=== PATIENT | female | born 2000 | race Caucasian/White ===

== ENCOUNTER 2021-05-13 22:28 | Emergency (ER) | payer BC ==
[2021-05-14] MEDS ORDERED: ACETAMINOPHEN TAB 500 MG TAB PO STA (00:24)
[2021-05-14] MEDS ORDERED: LIDOCAINE 2%-EPI 1:100,000 20 ML VIAL SQ STA (00:24)
[2021-05-14] MEDS ORDERED: AMOXIC-POT CLAV 875-125MG 1 EACH TAB PO STA (00:24)
[2021-05-14] MEDS ORDERED: DIPH,PERTUS(ACELL)TETVAC-LF 0.5 ML VIAL IM ONE (00:25)
--- NOTE | 2021-05-14 00:26 | ED ---
Animal Bite HPI - General Chief Complaint: Animal Bite Stated Complaint: Dog Bite, Head Injury Time Seen by Provider: 05/14/21 00:19 Source: patient, RN notes reviewed Mode of arrival: wheelchair Limitations: no limitations - History of Present Illness Initial Comments: This is a pleasant 20-year-old female presents to the emergency department, several lacerations to her scalp after being bitten by her friend's dog. Dog is up-to-date on immunizations and can be observed. Patient denying any significant pain. Patient drove straight here. The wounds were not cleansed. Patient herself is up-to-date on most immunizations but states she does not recall last time she had tetanus. She is 20 years old. Likely had tetanus at 10 or 11 years old. Patient has no other significant past medical history. No headache, no fever or chills, no changes in vision or hearing, no sore throat or difficulty with speech, no neck pain, no chest pain or shortness of breath, no abdominal pain, no nausea or vomiting, no changes in urination or bowel movements, no numbness or tingling, no extremity pain, no skin rashes or lesions. MD Complaint: animal bite Onset/Timin -: hour(s) Location: head - Related Data Previous Rx's Medication Instructions Recorded Acetaminophen [Tylenol] 500 mg PO Q4-6H PRN #24 tab 05/14/21 Amoxicillin/Potassium Clav 1 each PO Q12HR #20 tab 05/14/21 [Augmentin 875-125 Tablet] Ibuprofen [Motrin] 600 mg PO Q8HR PRN #30 tab 05/14/21 Allergies Allergy/AdvReac Type Severity Reaction Status Date / Time No Known Allergies Allergy Verified 05/13/21 23:56 Review of Systems ROS Statement: Those systems with pertinent positive or pertinent negative responses have been documented in the HPI. ROS Other: All systems not noted in ROS Statement are negative. Past Medical History Past Medical History: No Reported History History of Any Multi-Drug Resistant Organisms: None Reported Past Surgical History: No Surgical Hx Reported Past Psychological History: No Psychological Hx Reported Smoking Status: Never smoker Past Alcohol Use History: Occasional Past Drug Use History: None Reported General Exam Limitations: no limitations General appearance: alert, in no apparent distress Head exam: Present: normocephalic, normal inspection, other (Scalp lacerations, matted blood noted) Eye exam: Present: normal appearance, PERRL, EOMI. Absent: scleral icterus, conjunctival injection, periorbital swelling ENT exam: Present: normal exam, normal oropharynx, mucous membranes moist, normal external ear exam. Absent: mucous membranes dry Neck exam: Present: normal inspection, full ROM. Absent: tenderness, meningismus, lymphadenopathy Respiratory exam: Present: normal lung sounds bilaterally. Absent: respiratory distress, wheezes, rales, rhonchi, stridor, accessory muscle use Cardiovascular Exam: Present: regular rate, normal rhythm, normal heart sounds. Absent: systolic murmur, diastolic murmur, rubs, gallop, clicks GI/Abdominal exam: Present: soft. Absent: tenderness, guarding Extremities exam: Present: normal inspection, full ROM, normal capillary refill. Absent: tenderness, pedal edema, joint swelling, calf tenderness Back exam: Present: normal inspection Neurological exam: Present: alert, oriented X3, CN II-XII intact, normal gait. Absent: altered, abnormal gait, motor sensory deficit Psychiatric exam: Present: normal affect, normal mood Skin exam: Present: warm, dry, normal color. Absent: intact, rash Course Vital Signs 05/13/21 23:56 Temperature 98.3 F Pulse Rate 82 Respiratory 18 Rate Blood Pressure 123/72 O2 Sat by Pulse 100 Oximetry Procedures - Laceration Laceration #1 Site: scalp Size (cm): 11 Description: stellate, irregular, clean Depth: simple, single layer Anesthetic Used: lidocaine 1% Pre-repair: wound explored, irrigated extensively, deep structures intact, foreign body removed Type of Sutures: other (Jose) Size of Sutures: other (Rembrandt) Number of Sutures: 14 Patient Tolerated Procedure: well, no complications Laceration #2 Consent Obtained: verbal consent Indication: laceration Site: scalp Description: irregular, clean Depth: simple, single layer Anesthetic Used: benzocaine 0.25%, lidocaine 1%, with epi Anesthesia Technique: local infiltration Pre-repair: wound explored, irrigated extensively, deep structures intact, extensive debridement (Debridement 1.5 x 1.5 cm.) Type of Sutures: other (Staple) Size of Sutures: other (Jose) Number of Sutures: 11 Technique: simple, interrupted Patient Tolerated Procedure: well, no complications Medical Decision Making - Medical Decision Making Patient had several lacerations and abrasions to the posterior aspect of her scalp. She otherwise was neurologically intact. Did not appear to be ill or toxic. Wounds were cleansed thoroughly with 1 L of normal saline. Edges were approximated with jose. Computed tomography scan was done due to the trauma. There was no evidence of abnormality other than soft tissue changes. Reevaluated prior to discharge and is neurologically intact. Cranial nerves II through XII are intact. Discussed wound care in detail with the patient and her family. Augmentin 875 mg was given here. We'll continue twice daily. Ibuprofen and acetaminophen for pain control. Patient will need to follow-up with her regular doctor within 2 days for wound check. If she has any issues she is to return here. She is to return here immediately if any signs or symptoms of infection develop. All questions answered. Patient agrees with the treatment plan. The dog can be observed that the patient's friend's house. The case was discussed in detail with ED attending physician. Presentation, findings, treatment plan discussed in detail. Staple removal in 10-12 days Patient was told to return to the ER for any signs or symptoms worsen. Told to return immediately if any other problems arise. All questions answered. Treatment plan discussed. Patient in agreement Every effort has been made to ensure accuracy of this dictation. However, due to the limitations of electronic medical records and dictation devices, errors in charting still occur. Disposition Clinical Impression: Dog bite, Scalp laceration Disposition: HOME SELF-CARE Instructions (If sedation given, give patient instructions): Animal Bite (ED) Additional Instructions: Staple removal in 10-12 days. Take the antibiotics as directed. Follow-up with your regular doctor within 48 hours for wound check. Follow-up with your regular physician as directed. Return to the ER immediately if any symptoms worsen, new symptoms arise, or any other problems develop. Prescriptions: Amoxicillin/Potassium Clav [Augmentin 875-125 Tablet] 1 each PO Q12HR #20 tab Ibuprofen [Motrin] 600 mg PO Q8HR PRN #30 tab PRN Reason: Pain Acetaminophen [Tylenol] 500 mg PO Q4-6H PRN #24 tab PRN Reason: Pain Is patient prescribed a controlled substance at d/c from ED?: No Referrals: Maxi Ramos MD [REFERRING] - 1-2 days Time of Disposition: 02:30
[2021-05-14] MEDS ORDERED: BUPIVACAINE (PF) 0.5% 30 ML VIAL SQ STA (01:13)
--- NOTE | 2021-05-14 01:36 | CT ---
EXAMINATION TYPE: CT brain wo con DATE OF EXAM: 05/14/2021 COMPARISON: None HISTORY: DOG BITE TO BACK OF HEAD CT DLP: 1099.4 mGycm Automated exposure control for dose reduction was used. Images of the brain obtained without contrast. The ventricles and sulci appear normal. There is no mass effect or midline shift. There is no sign of intracranial hemorrhage. There is scalp laceration defect noted in the left occipital region. This i s consistent with a dog bite. There is no evidence of skull fracture. The skull base is intact. There is normal aeration of the mas toid sinuses. IMPRESSION: No intracranial abnormality. Laceration defect in the left occipital scalp.
[2021-05-14] MEDS ORDERED: BACITRACIN ZINC 500 UNIT/GM OINT 28.4 GM TUBE TOPICAL STA (02:19)
[2021-05-14] MEDS ORDERED: BACITRACIN OINT 1 EACH PACKET TOPICAL ONE (02:20)
[2021-05-14 02:41] VITALS: BP 119/79; PULSE 84; RESP 20; TEMP 98.2
== END 2021-05-14 02:41 | disposition home or self-care (01) ==
LOC: EC 22:28
DX: S01.01XA Laceration without foreign body of scalp, initial encounter (principal); W54.0XXA Bitten by dog, initial encounter
CPT/HCPCS: 12034; 70450; 90471; 90715; 99283